=== PATIENT | female | born 2000 | race Caucasian/White ===

== ENCOUNTER 2020-03-12 22:06 | Emergency (ER) | payer SELFPAY ==
[2020-03-12 22:14] VITALS: BP 108/59
--- NOTE | 2020-03-12 22:43 | ER Document Report ---
ED Medical Screen (RME) - General Chief Complaint: Abdominal Pain Stated Complaint: ABDOMINAL PAIN, PELVIC PAIN Time Seen by Provider: 03/12/20 22:26 Mode of Arrival: Wheelchair Information source: Patient Notes: 19-year-old female patient with history of ruptured ovarian cyst presenting to the emergency department with right lower quadrant abdominal pain. Patient reports this feels similar to when she had a ruptured cyst in the past. She denies any dysuria, urinary frequency, nausea, vomiting, diarrhea or fevers. Her last menstrual cycle was on 02/09/2020 and she is due for her cycle anytime. Patient reports about 1 year ago she was seen at an emergency department in [place] with similar symptoms. She states that they did a CAT scan with contrast and told her that 1 of her ovaries was "" and that she had problems with her gallbladder. She states that they told her that since she does not have insurance they would not take care of her. Exam: Slight tenderness to the right lower quadrant without guarding or rebound. I have greeted and performed a rapid initial assessment of this patient. A comprehensive ED assessment and evaluation of the patient, analysis of test re sults and completion of the medical decision making process will be conducted by additional ED providers. I have specifically instructed the patient or family members with the patient to immediately return to any nursing staff should anything change in the patient's condition or with their chief complaint. - Related Data Allergies/Adverse Reactions: No Known Allergies Allergy (Unverified 03/12/20 22:21) Past Medical History - Social History Frequency of alcohol use: None Drug Abuse: None Physical Exam - Vital signs Vitals: Temp Pulse Resp BP Pulse Ox 99.3 F 92 H 16 108/59 L 99 03/12/20 22:13 03/12/20 22:13 03/12/20 22:13 03/12/20 22:13 03/12/20 22:13 Course - Vital Signs Vital signs: Temp Pulse Resp BP Pulse Ox 99.3 F 92 H 16 108/59 L 99 03/12/20 22:21 03/12/20 22:13 03/12/20 22:13 03/12/20 22:13 03/12/20 22:13
[2020-03-12 23:06] LABS: ABSOLUTE BASOPHILS # (AUTO) 0.1 10^3/uL (0.0-0.2); ABSOLUTE EOSINOPHILS # (AUTO) 0.2 10^3/uL (0.0-0.6); ABSOLUTE LYMPHOCYTES (AUTO) 2.1 10^3/uL (0.5-4.7); ABSOLUTE MONOCYTES (AUTO) 0.7 10^3/uL (0.1-1.4); ABSOLUTE NEUT (AUTO) 4.1 10^3/uL (1.7-8.2); BASOPHILS % (AUTO) 0.9 % (0-2); EOSINOPHILS % (AUTO) 2.3 % (0-6); HEMATOCRIT 41.7 % (36.0-47.0); HEMOGLOBIN 14.5 g/dL (12.0-15.5); LYMPHOCYTES % (AUTO) 29.9 % (13-45); MEAN CORPUSCULAR HEMOGLOBIN 31.9 pg (27.0-33.4); MEAN CORPUSCULAR HGB CONC 34.7 g/dL (32.0-36.0); MEAN CORPUSCULAR VOLUME 92 fl (80-97); MONOCYTES % (AUTO) 9.7 % (3-13); PLATELET COUNT 223 10^3/uL (150-450); RED BLOOD COUNT 4.53 10^6/uL (3.72-5.28); RED CELL DISTRIBUTION WIDTH 13.6 % (11.5-14.0); SEGMENTED NEUTROPHILS % (AUTO) 57.2 % (42-78); TOTAL CELLS COUNTED % (AUTO) 100 %; WHITE BLOOD COUNT 7.2 10^3/uL (4.0-10.5)
[2020-03-12 23:11] LABS: APPEARANCE,URINE SLIGHTLY-CLOUDY; BILIRUBIN,URINE NEGATIVE (NEGATIVE); COLOR,URINE YELLOW; GLUCOSE, URINE NEGATIVE (NEGATIVE); KETONES,URINE NEGATIVE (NEGATIVE); LEUKOCYTE ESTERASE,URINE LARGE (NEGATIVE); NITRITE,URINE NEGATIVE (NEGATIVE); PROTEIN,URINE NEGATIVE (NEGATIVE); UROBILINOGEN,URINE NEGATIVE mg/dL (<2.0)
[2020-03-12 23:23] LABS: ALBUMIN 4.2 g/dL (3.7-5.6); ALKALINE PHOSPHATASE 46 U/L (50-135); ANION GAP 5 (5-19); ASPARTATE AMINO TRANSFERASE 22 U/L (5-30); BILIRUBIN,TOTAL 0.3 mg/dL (0.2-1.3); BLOOD UREA NITROGEN 9 mg/dL (7-20); CALCIUM 9.4 mg/dL (8.4-10.2); CARBON DIOXIDE 27 mmol/L (22-30); CHLORIDE 106 mmol/L (98-107); GLUCOSE 107 mg/dL (75-110); POTASSIUM 3.9 mmol/L (3.6-5.0); TOTAL PROTEIN 7.2 g/dL (6.3-8.2)
--- NOTE | 2020-03-12 23:28 | RADIOLOGY REPORT (SQ) ---
CLINICAL HISTORY: RLQ pain eval for cyst COMPARISON: None. TECHNIQUE: US PELVIS TRANSVAGINAL 03/12/2020 10:30 PM CDT FINDINGS: The uterus measures 6.5 cm and is normal in echotexture. Endometrium measures 4 mm. Cervix measures 2.9 cm. Right ovary is normal in size with patent flow. Left ovary is not seen. IMPRESSION: Unremarkable, somewhat limited study.
== END 2020-03-13 02:24 | disposition left against medical advice (07) ==
LOC: ER 22:06
DX: R10.31 Right lower quadrant pain (principal); R10.813 Right lower quadrant abdominal tenderness; Z87.42 Personal history of other diseases of the female genital tract; Z53.20 Procedure and treatment not carried out because of patient's decision for unspecified reasons
CPT/HCPCS: 36415; 76830; 80053; 81001; 84703; 85025; 93976; 99281; 99284